=== PATIENT | male | born 1955 | race Caucasian/White ===

== ENCOUNTER 2018-02-20 17:19 | Emergency (ER) | payer OTHER ==
[~2018-02-20] VITALS: Ht 175.3 cm; Wt 90.7 kg
[2018-02-20 17:19] VITALS: BP 144/87
== END 2018-02-20 19:55 | disposition home or self-care (01) ==
LOC: ER 17:24
DX: M10.072 Idiopathic gout, left ankle and foot (principal); G89.29 Other chronic pain; M54.5 Low back pain; Z60.2 Problems related to living alone
CPT/HCPCS: 73610-TC; 73630-TC; 93971-TC; A4606; Z7610